=== PATIENT | male | born 1925 | race Caucasian/White ===

== ENCOUNTER 2016-05-02 18:56 | Inpatient (IN) | payer MEDICARE, MEDICAID ==
[~2016-05-02] VITALS: Ht 170.2 cm; Wt 79.8 kg
[~2016-05-02 18:56] MED LIST: ASPI-1035 PO; BUDE6HFA INH; CLOP75TA2 PO; COR3 PO; Digoxin PO; FURO-151 PO; GLIM2TAB2 PO; GLIP5TAB12 PO; IPRA3AMP9 HHN; LIP40 PO; LISI-651 PO; LOSA100T14 PO; MECL-109 PO; MEGE400O PO; MOME13HF2 INH; Metoprolol Tartrate PO; OMEP20CA10 PO; PIOG1TAB7 PO; TRAM50TA3 PO; VALS80TA2 PO
[2016-05-02 20:00] VITALS: BP 111/66
[2016-05-02 20:10] VITALS: BP 111/66
[2016-05-02] MEDS ORDERED: CLONIDINE 0.2MG TABLET PO PRN (21:30)
[2016-05-02] MEDS ORDERED: DEXTROSE 50% WATER 50ML SYRINGE IV PRN ×3 (22:00→23:30)
[2016-05-02] MEDS: SODIUM CHLORIDE 0.45% 1,000 ML IV SCH (22:53)
[2016-05-03] VITALS: BP 104/68
[2016-05-03] MEDS: ACETAMINOPHEN 650MG/20.3ML UDC PO PRN ×3 (00:06→17:34)
[2016-05-03] MEDS ORDERED: ALBUTEROL (0.083%) 2.5MG/3ML NEB HHN PRN (00:30)
[2016-05-03] MEDS ORDERED: LORAZEPAM 1MG TABLET PO NR ×2 (00:53→22:34)
[2016-05-03] MEDS ORDERED: FUROSEMIDE 40MG/4ML VIAL IVP NR (00:55)
[2016-05-03] MEDS: INSULIN LISPRO 100 UNITS/ML SUBCUT SCH ×5 (01:05→20:27)
[2016-05-03 04:00] VITALS: BP 96/70
[2016-05-03 05:58] LABS: BASOPHILS % 0.4 % (0.0-2.0); EOSINOPHILS % 1.6 % (0.0-5.0); HEMATOCRIT. 36.8 % (42.0-52.0); HEMOGLOBIN. 12.5 g/dL (14.0-18.0); LYMPHOCYTES % 17.8 % (20.0-50.0); MEAN CORPUSCULAR HEMOGLOBIN 30.2 pg (28.0-32.0); MEAN CORPUSCULAR HGB CONC 34.1 g/dL (31.0-37.0); MEAN CORPUSCULAR VOLUME 88.6 fL (80.0-94.0); MEAN PLATELET VOLUME 9.7 fl (7.4-10.4); NEUTROPHILS % 73.2 % (40.0-76.0); PLATELET 208 x1000/uL (130-400); RED BLOOD CELL COUNT 4.15 mill/uL (4.7-6.1); RED CELL DISTRIBUTION WIDTH 14.7 % (11.6-14.6); WHITE BLOOD COUNT 7.8 x1000/uL (4.5-11.0)
[2016-05-03 06:14] LABS: CHLORIDE 98 mEq/L (98-107); INDEX HEMOLYSI 1 (1-3); INDEX ICTERIC 1 (1-4); INDEX LIPEMIC 1 (1-3)
[2016-05-03 06:19] LABS: ANION GAP 15; CALCIUM 8.3 mg/dL (8.5-10.1); CARBON DIOXIDE 26 mEq/L (21-32); UREA NITROGEN BLOOD 22 mg/dL (7-21); eGFR > 60 mL/min (>60)
[2016-05-03] MEDS: BLOOD SUGAR DIAGNOSTIC STRIP TEST SCH ×4 (06:28→20:27)
[2016-05-03 07:26] LABS: BG BASE EXCESS 0.3 mmol/L (-2.0-2.0); BG CARBOXYHEMOGLOBIN 0.4 % (0.5-1.5); BG DEOXYHEMOGLOBIN 7.4 % (0.0-5.0); BG FRACTION INSPIRED OXYGEN 32; BG HCO3 ACT 23.1 mmol/L (22.0-26.0); BG METHEMOGLOBIN 0.3 % (0.0-1.5); BG OXYGEN SATURATION 92.5 % (92.0-98.5); BG OXYHEMOGLOBIN 91.9 % (94.0-97.0); BG PCO2 31.6 mmHg (35.0-45.0); BG PH 7.481 (7.350-7.450); BG PO2 60.3 mmHg (75.0-100.0); BG SAMPLE SITE RIGHT BRACHIAL; BG TOTAL HEMOGLOBIN 13.1 g/dL (12.0-18.0); BG VENT MODE NASAL CANNULA
[2016-05-03] MEDS ORDERED: INSULIN LISPRO 100 UNITS/ML SUBCUT SCH ×3 (07:40)
[2016-05-03 08:00] VITALS: BP 96/60
[2016-05-03] MEDS: ENOXAPARIN 40MG/0.4ML SYR SUBCUT SCH (08:23)
[2016-05-03] MEDS: SODIUM CHLORIDE 0.45% 1,000 ML IV SCH ×2 (08:24→17:45)
[2016-05-03 12:00] VITALS: BP 109/69
[2016-05-03] MEDS ORDERED: POTASSIUM CHLORIDE 20MEQ TABLET SR PO NR (12:15)
[2016-05-03 15:50] VITALS: BP 100/68
[2016-05-03 20:00] VITALS: BP 107/70
[2016-05-03] MEDS ORDERED: SODIUM CHLORIDE 0.45% 1,000 ML IV SCH (23:47)
[2016-05-04] VITALS: BP 116/89
[2016-05-04] MEDS ORDERED: IPRATROPIUM/ALBUTEROL 0.5-3(2.5)MG/3ML NEB INH PRN
[2016-05-04] MEDS ORDERED: ACETAMINOPHEN 650MG/20.3ML UDC GT PRN
[2016-05-04] MEDS ORDERED: MAGNESIUM/ALUMINUM HYDROXIDE/SIMETHICONE 30ML UDC PO PRN
[2016-05-04] MEDS ORDERED: ACETAMINOPHEN 650MG SUPP PR PRN
[2016-05-04] MEDS ORDERED: POTASSIUM CHLORIDE 20MEQ TABLET SR PO NR
[2016-05-04] MEDS ORDERED: ACETAMINOPHEN 325MG TABLET PO PRN
[2016-05-04] MEDS ORDERED: DIPHENHYDRAMINE 50MG/ML VIAL IV PRN
[2016-05-04] MEDS ORDERED: DOCUSATE SODIUM 100MG CAPSULE PO PRN
[2016-05-04] MEDS ORDERED: CLONIDINE 0.1MG TABLET PO PRN
[2016-05-04] MEDS ORDERED: GUAIFENESIN 200MG/10ML SUGAR FREE UDC PO PRN
[2016-05-04] MEDS ORDERED: ONDANSETRON HCL 4MG/2ML VIAL IV PRN
[2016-05-04] MEDS ORDERED: NA PHOS,M-B/NA PHOS,DI-BA ENEMA 118ML PR PRN
[2016-05-04 02:19] LABS: D-DIMER 0.91 mg/L FEU (<0.50); INR 1.1; PARTIAL THROMBOPLASTIN TIME 31.2 sec (24.0-34.0); PROTHROMBIN TIME 11.7 sec
[2016-05-04 04:00] VITALS: BP 103/83
[2016-05-04] MEDS ORDERED: SODIUM CHLORIDE 0.9% INJ 3ML FLUSH IVF SCH (06:00)
[2016-05-04] MEDS: BLOOD SUGAR DIAGNOSTIC STRIP TEST SCH ×4 (06:19→20:43)
[2016-05-04] MEDS: INSULIN LISPRO 100 UNITS/ML SUBCUT SCH ×4 (06:37→21:22)
[2016-05-04 07:07] LABS: BASOPHILS % 0.4 % (0.0-2.0); EOSINOPHILS % 2.7 % (0.0-5.0); HEMATOCRIT. 39.4 % (42.0-52.0); HEMOGLOBIN. 13.1 g/dL (14.0-18.0); MEAN CORPUSCULAR HEMOGLOBIN 30.3 pg (28.0-32.0); MEAN CORPUSCULAR HGB CONC 33.3 g/dL (31.0-37.0); MEAN CORPUSCULAR VOLUME 90.9 fL (80.0-94.0); MEAN PLATELET VOLUME 9.7 fl (7.4-10.4); MONOCYTES % 6.5 % (2.0-8.0); NEUTROPHILS % 73.4 % (40.0-76.0); PLATELET 207 x1000/uL (130-400); RED BLOOD CELL COUNT 4.34 mill/uL (4.7-6.1); RED CELL DISTRIBUTION WIDTH 14.7 % (11.6-14.6); WHITE BLOOD COUNT 8.4 x1000/uL (4.5-11.0)
[2016-05-04 08:00] VITALS: BP 117/89
[2016-05-04 08:33] LABS: ALANINE AMINOTRANSFERASE 22 IU/L (13-61); ALBUMIN 3.4 g/dL (3.4-5.0); ANION GAP 16; CALCIUM 8.4 mg/dL (8.5-10.1); CARBON DIOXIDE 22 mEq/L (21-32); CHLORIDE 100 mEq/L (98-107); CREATINE KINASE 178 IU/L (39-308); HDL CHOLESTEROL 39 mg/dL (40-59); INDEX HEMOLYSI 1 (1-3); INDEX ICTERIC 1 (1-4); INDEX LIPEMIC 1 (1-3); LDL CHOLESTEROL 124 mg/dL (5-100); TRIGLYCERIDE 67 mg/dL (0-150); UREA NITROGEN BLOOD 22 mg/dL (7-21); eGFR > 60 mL/min (>60)
[2016-05-04] MEDS: ACETAMINOPHEN 650MG/20.3ML UDC PO PRN ×2 (08:57→15:00)
[2016-05-04] MEDS: ENOXAPARIN 40MG/0.4ML SYR SUBCUT SCH (08:57)
[2016-05-04] MEDS ORDERED: FUROSEMIDE 40MG/4ML VIAL IVP SCH (09:00)
[2016-05-04] MEDS ORDERED: LEVOFLOXACIN 500MG TABLET PO SCH (11:00)
[2016-05-04 12:00] VITALS: BP 113/80
[2016-05-04] MEDS ORDERED: SODIUM CHLORIDE 0.9% 500 ML IV SCH ×2 (14:30)
[2016-05-04 16:00] VITALS: BP 116/79
[2016-05-04] MEDS: HYDROCODONE/ACETAMINOPHEN 5/325MG TABLET PO PRN (17:13)
[2016-05-04 17:49] LABS: T4 FREE 1.24 ng/dL (0.76-1.46); THYROID STIMULATING HORMONE 0.96 uIU/mL (0.36-3.74)
[2016-05-04 20:00] VITALS: BP 113/82
[2016-05-05] VITALS: BP 108/76
[2016-05-05 00:19] LABS: CREATINE KINASE MB FRACTION 3.6 ng/mL (0.5-3.6); TROPONIN I 0.1 ng/mL (0.00-0.04)
[2016-05-05] MEDS ORDERED: BESYLATE PO (00:19)
[2016-05-05] MEDS ORDERED: P20 PO (00:19)
[2016-05-05] MEDS ORDERED: TAMS0.4C31 PO (00:19)
[2016-05-05] MEDS ORDERED: LEVO500T89 PO (00:19)
[2016-05-05] MEDS: HYDROCODONE/ACETAMINOPHEN 5/325MG TABLET PO PRN (03:33)
[2016-05-05 04:00] VITALS: BP 147/94
[2016-05-05] MEDS: BLOOD SUGAR DIAGNOSTIC STRIP TEST SCH ×4 (06:07→20:41)
[2016-05-05] MEDS: INSULIN LISPRO 100 UNITS/ML SUBCUT SCH ×4 (06:12→20:42)
[2016-05-05 08:00] VITALS: BP 113/77
[2016-05-05] MEDS: ASPIRIN 81MG TABLET PO SCH (08:56)
[2016-05-05] MEDS: ENOXAPARIN 40MG/0.4ML SYR SUBCUT SCH (08:57)
[2016-05-05 09:56] LABS: CREATINE KINASE MB FRACTION 3.8 ng/mL (0.5-3.6); TROPONIN I 0.11 ng/mL (0.00-0.04)
[2016-05-05 12:00] VITALS: BP 107/80
[2016-05-05 16:00] VITALS: BP 138/90
[2016-05-05 16:17] LABS: CREATINE KINASE MB FRACTION 3.6 ng/mL (0.5-3.6); TROPONIN I 0.09 ng/mL (0.00-0.04)
[2016-05-05 16:29] LABS: BG BASE EXCESS -0.8 mmol/L (-2.0-2.0); BG CARBOXYHEMOGLOBIN 0.6 % (0.5-1.5); BG DEOXYHEMOGLOBIN 6.1 % (0.0-5.0); BG FRACTION INSPIRED OXYGEN 21; BG HCO3 ACT 22.2 mmol/L (22.0-26.0); BG METHEMOGLOBIN 0.2 % (0.0-1.5); BG OXYGEN SATURATION 93.9 % (92.0-98.5); BG OXYHEMOGLOBIN 93.1 % (94.0-97.0); BG PCO2 32.4 mmHg (35.0-45.0); BG PH 7.454 (7.350-7.450); BG PO2 66.2 mmHg (75.0-100.0); BG SAMPLE SITE RIGHT BRACHIAL; BG TOTAL HEMOGLOBIN 14.4 g/dL (12.0-18.0); BG VENT MODE ROOM AIR
[2016-05-05 20:00] VITALS: BP 114/82
[2016-05-05] MEDS ORDERED: ZOLPIDEM TARTRATE 5MG TABLET PO NR (21:30)
[2016-05-06] VITALS: BP 122/78
[2016-05-06 04:00] VITALS: BP 125/75
[2016-05-06] MEDS: BLOOD SUGAR DIAGNOSTIC STRIP TEST SCH ×3 (06:14→17:41)
[2016-05-06 08:00] VITALS: BP 104/75
[2016-05-06] MEDS: INSULIN LISPRO 100 UNITS/ML SUBCUT SCH ×3 (08:32→17:51)
[2016-05-06] MEDS: ENOXAPARIN 40MG/0.4ML SYR SUBCUT SCH (08:32)
[2016-05-06] MEDS: ASPIRIN 81MG TABLET PO SCH (08:32)
[2016-05-06] MEDS: HYDROCODONE/ACETAMINOPHEN 5/325MG TABLET PO PRN (10:06)
[2016-05-06 12:00] VITALS: BP 105/74
[2016-05-06 16:00] VITALS: BP 121/69
[2016-05-06 17:04] VITALS: BP 117/91
[2016-05-07] MEDS ORDERED: CARVEDILOL 3.125 MG TABLET PO SCH (09:00)
== END 2016-05-06 20:00 | disposition home or self-care (01) | DRG 637 ==
LOC: 8WST 18:56
PROVIDERS: ADMIT Internal Medicine; ATTEND Internal Medicine
DX: E11.65 Type 2 diabetes mellitus with hyperglycemia (principal); G93.41 Metabolic encephalopathy; E46 Unspecified protein-calorie malnutrition; I50.40 Unspecified combined systolic (congestive) and diastolic (congestive) heart failure; I13.0 Hypertensive heart and chronic kidney disease with heart failure and stage 1 through stage 4 chronic kidney disease, or unspecified chronic kidney disease; E86.0 Dehydration; D64.9 Anemia, unspecified; E11.22 Type 2 diabetes mellitus with diabetic chronic kidney disease; E87.8 Other disorders of electrolyte and fluid balance, not elsewhere classified; E11.42 Type 2 diabetes mellitus with diabetic polyneuropathy; E78.5 Hyperlipidemia, unspecified; I35.0 Nonrheumatic aortic (valve) stenosis; N18.9 Chronic kidney disease, unspecified; Z99.81 Dependence on supplemental oxygen; Z68.27 Body mass index [BMI] 27.0-27.9, adult; Z79.899 Other long term (current) drug therapy
CPT/HCPCS: 36415; 36600; 71010; 80048; 80053; 80061; 82375; 82550; 82553; 82805; 82962; 83036; 83880; 84439; 84443; 84484; 85025; 85379; 85610; 85730; 93005; 93306; 93970; 94664; 97162; C1893; J1650; J1815; J1940; J7030; J7040; J7611